=== PATIENT | female | born 1960 | race Caucasian/White ===

== ENCOUNTER 2022-10-28 05:48 | Emergency (ER) | payer OTHER, SELFPAY ==
--- NOTE | ~2022-10-28 | XR_ITS ---
EXAMINATION: XR chest 2V DATE: 10/28/2022 06:21 INDICATION: Cough. TECHNIQUE: Frontal and lateral views of the chest were obtained. COMPARISON: None. FINDINGS: The chest demonstrates clear lungs without pneumonia, pleural effusion, or pneumothorax. Th e heart size is normal. Surgical clips in the right upper quadrant are likely from cholecystectomy. IMPRESSION: 1. No acute cardiopulmonary disease. Reviewed, dictated and finalized at location A. [facility]
--- NOTE | 2022-10-28 06:11 | ED.GENADULT ---
HPI - General Adult General Chief complaint: Upper Respiratory Infection Stated complaint: cough x 8 days, fever Time Seen by Provider: 10/28/22 05:58 History of Present Illness HPI narrative: This is a 62-year-old female presenting ED with chief complaint of URI symptoms x8 days. Her symptoms include cough congestion sore throat headache and body aches. She denies nausea vomiting or diarrhea. She has had decreased appetite but has been forcing herself to drink water. She denies chest pain, shortness of breath, abdominal pain, urinary symptoms. She has taken Mucinex with minimal relief. Patient was told to come to the ER by her primary care physician to get a chest x-ray. Related Data Allergies Allergy/AdvReac Type Severity Reaction Status Date / Time lisinopril Allergy Cough Verified 10/28/22 06:13 Sulfa (Sulfonamide Allergy Rash Verified 10/28/22 06:14 Antibiotics) Review of Systems Review of Systems: CONSTITUTIONAL: Denies night sweats. EYES: No eye pain ENT: Denies rhinorrhea CARDIOVASCULAR: Denies palpitations RESPIRATORY: Denies hemoptysis GASTROINTESTINAL: Denies hematemesis GENITOURINARY: Denies hematuria. SKIN: Denies rash MUSCULOSKELETAL: Denies myalgia. NEUROLOGIC: Denies weakness. PSYCHIATRIC: Denies delusions PMFSH Past Medical History Medical History Jono's disease Hypertension Social History Social History Social History: Patient drinks alcohol occasionally, denies tobacco or drug use Exam Narrative: APPEARANCE: patient appears uncomfortable Head: atraumatic. EYES: EOMI, NOSE: Atraumatic NECK: Trachea midline RESPIRATORY: No increased rate of breathing, clear to auscultation bilaterally, deep inspirations trigger cough CARDIOVASCULAR: RRR, no peripheral edema ABDOMINAL: Non-distended MUSCULOSKELETAl: No obvious deformities NEURO: Alert. Moving 4/4 extremities SKIN:: Warm, dry. Normal color PSYCHIATRIC: Normal affect Course Vital Signs Vital signs: Vital Signs Temperature 99.6 F 10/28/22 06:45 Pulse Rate 90 10/28/22 06:45 Respiratory Rate 20 10/28/22 06:45 Blood Pressure 129/79 10/28/22 06:45 Pulse Oximetry 100 10/28/22 06:45 Oxygen Delivery Room Air 10/28/22 06:45 Temperature 99.6 F 10/28/22 06:45 Pulse Rate 90 10/28/22 06:45 Respiratory Rate 20 10/28/22 06:45 Blood Pressure 129/79 10/28/22 06:45 Pulse Oximetry 100 10/28/22 06:45 Oxygen Delivery Room Air 10/28/22 06:50 Medical Decision Making MDM Narrative Medical decision making narrative: this is a 62-year-old female presenting to ED with URI symptoms. She was instructed to come to the ED by her primary care physician to obtain a chest x-ray. Patient will be given symptomatic treatment including Motrin/Tylenol/ Robitussin and a shot of dexamethasone. Chest x-ray was negative for any infiltrate. Vital Signs Vital Signs: Vital Signs Temperature 99.6 F 10/28/22 06:45 Pulse Rate 90 10/28/22 06:45 Respiratory Rate 20 10/28/22 06:45 Blood Pressure 129/79 10/28/22 06:45 Pulse Oximetry 100 10/28/22 06:45 Oxygen Delivery Room Air 10/28/22 06:45 Temperature 99.6 F 10/28/22 06:45 Pulse Rate 90 10/28/22 06:45 Respiratory Rate 20 10/28/22 06:45 Blood Pressure 129/79 10/28/22 06:45 Pulse Oximetry 100 10/28/22 06:45 Oxygen Delivery Room Air 10/28/22 06:50 Lab Data Labs: Lab Results 10/28/22 Range/Units 06:33 Influenza A (RT-PCR) Pending Influenza B (RT-PCR) Pending SARS-CoV-2 RNA (RT-PCR) Pending Discharge Plan Discharge Clinical Impression: Acute viral syndrome, Bronchitis Patient Disposition: Home, Self-Care Condition: Stable Instructions: Antibiotic Form, Acute Bronchitis (ED) Additional Instructions: Please take Motrin and Tylenol for aches and pains. Please u
[2022-10-28] MEDS: ACETAMINOPHEN 500 MG TABLET 1000 MG PO (06:24)
[2022-10-28] MEDS: IBUPROFEN 400 MG TABLET 800 MG PO (06:25)
[2022-10-28] MEDS: guaiFENesin/DEXTROMETHORPHAN 10 ML UDC PO (06:27)
[2022-10-28 06:45] VITALS: BP 129/79; PULSE 90; RESP 20; TEMP 37.6; O2SAT 100
[2022-10-28 07:30] LABS: Influenza A QL RT-PCR Negative (Negative); Influenza B QL RT-PCR Negative (Negative); SARS-CoV-2 RNA PCR Negative
[2022-10-28 09:15] VITALS: BP 120/74; PULSE 80; RESP 16; O2SAT 97
== END 2022-10-28 09:15 | disposition home or self-care (01) ==
PROVIDERS: Emergency Provider Emergency Medicine
DX: B34.9 Viral infection, unspecified (principal); J40 Bronchitis, not specified as acute or chronic; Z20.822 Contact with and (suspected) exposure to COVID-19; E06.3 Autoimmune thyroiditis; I10 Essential (primary) hypertension
CPT/HCPCS: 71046; 87636; 96372; 99283; A9270; J1100